=== PATIENT | male | born 1990 | race Caucasian/White ===

== ENCOUNTER → 2016-12-31 | Outpatient (CLI) | payer SELFPAY ==
--- NOTE | 2016-12-31 08:57 | CT ---
EXAMINATION TYPE: CT abdomen pelvis wo con DATE OF EXAM: 12/31/2016 8:15 AM COMPARISON: NONE HISTORY: Bilateral flank pain with hematuria and increased frequancy of urination CT DLP: 231.1 mGycm FINDINGS: LUNG BASES: No evidence for nodule. No evidence for infiltrate. LIVER/GB: The gallbladder is unremarkable. No space-occupying hepatic lesion. PANCREAS: No pancreatic mass identified. No inflammatory process seen. SPLEEN: No evidence for splenomegaly. No intrasplenic lesions seen. ADRENALS: No adrenal nodules identified. No evidence for thickening. KIDNEYS: 3 mm calculus which has nearly passed at the left UVJ resulting in [id number] hydroure teronephrosis. Additional 4 mm nonobstructing calculus lower pole left kidney. Tiny nonobstructing ca lculi right kidney. No evidence for renal mass. BOWEL: Appendix has a normal appearance. No evidence of bowel obstruction. No inflammatory process. Lymph nodes: No evidence for adenopathy greater than 1 cm. Abdominal aorta: Atheromatous changes seen. No evidence for aneurysm. Genital organs: No significant abnormality. Other: No significant abnormality. IMPRESSION: 3 mm calculus which has nearly passed at the left UVJ resulting in [id number] hydroureteronephr osis. Additional 4 mm nonobstructing calculus lower pole left kidney. Tiny nonobstructing calculi rig ht kidney.
== END | disposition home or self-care (01) ==
LOC: RADCTMAIN 07:57
PROVIDERS: ATTEND Nurse Practitioner Family
DX: N13.2 Hydronephrosis with renal and ureteral calculous obstruction (principal)
CPT/HCPCS: 74176

== ENCOUNTER 2022-07-23 14:36 | Emergency (ER) | payer OTHER ==
[2022-07-23 15:57] VITALS: TEMP 98
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
--- NOTE | 2022-07-23 16:37 | XR ---
EXAMINATION TYPE: XR cervical spine comp DATE OF EXAM: 07/23/2022 COMPARISON: NONE HISTORY: Neck pain TECHNIQUE: 6 views FINDINGS: Cervical vertebra have normal alignment. Disc spaces are fairly normal. Posterior elements are intact. No compression fracture. The neural foramina are widely patent atlantoaxial facet joint i s normal. No cervical ribs. IMPRESSION: Negative cervical spine exam.
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
[2022-07-23 17:38] VITALS: BP 112/78; PULSE 89; RESP 18
== END 2022-07-23 17:10 | disposition home or self-care (01) ==
LOC: EC 14:36
DX: M25.511 Pain in right shoulder (principal); F17.290 Nicotine dependence, other tobacco product, uncomplicated; F12.90 Cannabis use, unspecified, uncomplicated
CPT/HCPCS: 72050; 99283

== ENCOUNTER → 2023-10-10 | Outpatient (CLI) | payer SELFPAY ==
--- NOTE | 2023-10-11 09:05 | CA ---
Transthoracic Echo Report Name: Daquan Patterson Age: 33 Gender: M : 1990 Exam Date: 10/10/2023 18:02 Exam Location: [facility] Ht (in): 68 Wt (lb): 145 Ordering Physician: Milagros Irene DO Attending/Referring Phys: Sussy Grajeda [facility] D[facility] Physician Assistant Liya Kim RDCS Procedure CPT: Indications: R01.1 CARDIAC MURMUR, UNSPECIFIED Cardiac Hx: Technical Quality: Fair Contrast 1: Total Dose (mL): Contrast 2: Total Dose (mL): MEASUREMENTS (Male / Female) Normal Values 2D ECHO LV Diastolic Diameter PLAX 4.9 cm 4.2 - 5.9 / 3.9 - 5.3 cm LV Systolic Diameter PLAX 3.4 cm IVS Diastolic Thickness 0.9 cm 0.6 - 1.0 / 0.6 - 0.9 cm LVPW Diastolic Thickness 0.9 cm 0.6 - 1.0 / 0.6 - 0.9 cm LV Relative Wall Thickness 0.4 RV Internal Dim ED PLAX 2.6 cm M-MODE Aortic Root Diameter MM 3.3 cm LA Systolic Diameter MM 2.8 cm LA Ao Ratio MM 0.8 AV Cusp Separation MM 2.5 cm DOPPLER AV Peak Velocity 156.7 cm/s AV Peak Gradient 9.8 mmHg AV Mean Velocity 108.5 cm/s AV Mean Gradient 5.1 mmHg AV Velocity Time Integral 30.0 cm AI Peak Velocity 476.6 cm/s AI Peak Gradient 90.8 mmHg AI Pressure Half Time 551.8 ms LVOT Peak Velocity 70.5 cm/s LVOT Peak Gradient 2.0 mmHg LVOT Velocity Time Integral 15.2 cm Mitral E Point Velocity 79.9 cm/s Mitral A Point Velocity 63.2 cm/s Mitral E to A Ratio 1.3 MV Deceleration Time 160.6 ms MV E' Velocity 12.2 cm/s Mitral E to MV E' Ratio 6.5 FINDINGS Left Ventricle Normal Left ventricular size, wall thickness, systolic function with no obvious regional wall motion abnormalities. Normal Left ventricular diastolic filling pattern. Left ventricular ejection fraction is estimated at 55-60%. Right Ventricle Normal right ventricular size and function. Right ventricular systolic pressure within normal limits. Right Atrium Normal right atrial size. Left Atrium Normal left atrial size. Mitral Valve Structurally normal mitral valve. No mitral stenosis, regurgitation or prolapse. Aortic Valve Focal thickening of the aortic valve cusps. Bicuspid aortic valve. No aortic stenosis. [id number] aortic regurgitation. Tricuspid Valve Structurally normal tricuspid valve. Mild tricuspid regurgitation. Pulmonic Valve Trace pulmonic regurgitation. Pericardium No pericardial effusion. Aorta Normal size aortic root and proximal ascending aorta. CONCLUSIONS Normal LV systolic function Bicuspid aortic valve with mild to moderate aortic regurgitation Previewed by: Dr. Vicente Terrazas MD (Electronically Signed) Final Date: 11 October 2023 09:04
== END | disposition home or self-care (01) ==
LOC: RADECHMAIN 17:52
PROVIDERS: ATTEND Family Medicine
DX: I35.1 Nonrheumatic aortic (valve) insufficiency (principal); R01.1 Cardiac murmur, unspecified
CPT/HCPCS: 93306